=== PATIENT | female | born 1965 | race Caucasian/White ===

== ENCOUNTER → 2020-07-12 | Day surgery (SDC) | payer OTHER | END | disposition home or self-care (01) | LOC: JRADUS-SUR 10:42 | PROVIDERS: ATTEND Specialist | PROC: 0H9T3ZX Drainage of Right Breast, Percutaneous Approach, Diagnostic (ICD-10-PCS; principal; 2020-07-12) | DX: C50.911 Malignant neoplasm of unspecified site of right female breast (principal) | CPT/HCPCS: 19083; 77065-TC; 87899; A4648 ==

== ENCOUNTER 2020-09-05 10:26 | Emergency (ER) | payer OTHER | END 2020-09-05 11:24 | disposition home or self-care (01) | LOC: JVIRT 10:26 | DX: Z20.822 Contact with and (suspected) exposure to COVID-19 (principal) | CPT/HCPCS: C9803; G2251-GT; U0003 ==

== ENCOUNTER 2021-03-07 11:59 | Emergency (ER) | payer OTHER ==
[2021-03-08 14:11] LABS: SARS-CoV-2 NAA Not Detected (Not Detected)
== END 2021-03-07 12:33 | disposition home or self-care (01) ==
LOC: JVIRT 11:59
DX: Z20.822 Contact with and (suspected) exposure to COVID-19 (principal)
CPT/HCPCS: C9803; Q3014-GT; U0003; U0005